=== PATIENT | female | born 1975 | race Caucasian/White ===

== ENCOUNTER → 2017-03-18 | Outpatient (CLI) | payer BC ==
--- NOTE | 2017-03-18 14:58 | RADIOLOGY REPORT (SQ) ---
EXAM DESCRIPTION: CT ABD/PELVIS WITH IV ORAL COMPLETED DATE/TIME: 03/18/2017 2:16 pm REASON FOR STUDY: ABDOMINAL PAIN/HX OF OVARIAN CA R10.9 UNSPECIFIED ABDOMINAL PAIN Z85.43 PERSONAL HISTORY OF MALIGNANT NEOPLASM OF OVARY COMPARISON: None. TECHNIQUE: CT scan of the abdomen and pelvis performed with intravenous and oral contrast using mariah jj scanning technique with dynamic intravenous contrast injection. Images reviewed with lung, soft t issue, and bone windows. Reconstructed coronal and sagittal MPR images reviewed. Delayed images for e valuation of the urinary system also acquired. All images stored on PACS. All CT scanners at this facility use dose modulation, iterative reconstruction, and/or weight based d osing when appropriate to reduce radiation dose to as low as reasonably achievable (ALARA). [facility]: Dose Right [facility]: CareDose [facility]: Dose Right [facility]: Teradose 4D [facility]: Zalando CONTRAST TYPE AND DOSE: contrast/concentration: Isovue 370.00 mg/ml; Total Contrast Delivered: 82.0 ml; Total Saline Delivered: 72.0 ml RENAL FUNCTION: BUN 14 creatinine 0.82. RADIATION DOSE: Up-to-date CT equipment and radiation dose reduction techniques were employed. CTDIv ol: 19.4 - 20.3 mGy. DLP: 2183 mGy-cm.. LIMITATIONS: None. FINDINGS: LOWER CHEST: No significant findings. No nodules or infiltrates. LIVER: Normal size. Diffuse fatty infiltration. No masses. No dilated ducts. SPLEEN: Normal size. No focal lesions. PANCREAS: No masses. No significant calcifications. No adjacent inflammation or peripancreatic fluid collections. Pancreatic duct not dilated. GALLBLADDER: Surgically absent. ADRENAL GLANDS: No significant masses or asymmetry. RIGHT KIDNEY AND URETER: No solid masses. No significant calcification. No hydronephrosis or hydroure ter. LEFT KIDNEY AND URETER: No solid masses. No significant calcification. No hydronephrosis or hydrouret er. AORTA AND VESSELS: No aneurysm. No dissection. Renal arteries, SMA, celiac without stenosis. RETROPERITONEUM: No retroperitoneal adenopathy, hemorrhage or masses. BOWEL AND PERITONEAL CAVITY: No obstruction. No visualized masses. No free fluid. No inflammatory ch anges or thickening of bowel wall. APPENDIX: Surgically absent. PELVIS: No significant masses. Normal bladder. No free fluid. ABDOMINAL WALL: No masses. There are three separate midline anterior abdominal wall hernias. One is located just above the umbilicus, the second located just below the umbilicus, and the third located just inferior to the second one. All three hernias contain loops of small bowel. BONES: No significant or acute findings. OTHER: No other significant finding. IMPRESSION: 1. THREE MIDLINE ANTERIOR ABDOMINAL WALL HERNIAS LOCATED JUST ABOVE AND BELOW THE UMBILICUS DESCRI BED. ALL THREE HERNIAS CONTAIN LOOPS OF SMALL BOWEL WITH NO MECHANICAL OBSTRUCTION. 2. NO OTHER SIGNIFICANT OR ACUTE FINDINGS IN THE ABDOMEN OR PELVIS. INCIDENTAL FATTY INFILTRATION OF THE LIVER. NO EVIDENCE OF PELVIC MASS. TECHNICAL DOCUMENTATION: JOB ID: [id number] Quality ID # [id number]: Final reports with documentation of one or more dose reduction techniques (e.g., Au tomated exposure control, adjustment of the mA and/or kV according to patient size, use of iterative reconstruction technique) 2010 [employer]- All Rights Reserved
== END ==
LOC: RAD 11:42
PROVIDERS: ATTEND Surgery
DX: Z85.43 Personal history of malignant neoplasm of ovary (principal); R10.9 Unspecified abdominal pain
CPT/HCPCS: 74177

== ENCOUNTER 2017-03-19 07:10 | Day surgery (SDC) | payer BC ==
[2017-03-17 10:04] LABS: HEMATOCRIT 39.1 % (36.0-47.0); HEMOGLOBIN 13.7 g/dL (12.0-15.5); MEAN CORPUSCULAR HEMOGLOBIN 29.2 pg (27.0-33.4); MEAN CORPUSCULAR HGB CONC 34.9 g/dL (32.0-36.0); MEAN CORPUSCULAR VOLUME 84 fl (80-97); RED BLOOD COUNT 4.68 10^6/uL (3.72-5.28); RED CELL DISTRIBUTION WIDTH 13.1 % (11.5-14.0); WHITE BLOOD COUNT 6.2 10^3/uL (4.0-10.5)
[2017-03-17 10:29] LABS: ANION GAP 15 (5-19); BLOOD UREA NITROGEN 14 mg/dL (7-20); CALCIUM 9.2 mg/dL (8.4-10.2); CARBON DIOXIDE 25 mmol/L (22-30); CHLORIDE 103 mmol/L (98-107); CREATININE RESULT 0.82 mg/dL (0.52-1.25); GLUCOSE 105 mg/dL (75-110); POTASSIUM 4.4 mmol/L (3.6-5.0); SODIUM 142.9 mmol/L (137-145)
[~2017-03-19 07:10] MED LIST: ACETAMINOPHEN 100 ML IV ONE; ACETAMINOPHEN 325 MG TABLET PO PRN; FENTANYL CITRATE INJ/PF 100 MCG/2 ML AMPUL ONE; HYDROMORPHONE HCL INJ/PF 2 MG/ML AMPULE ONE; LACTATED RINGERS 1000 ML IV PRN; LIDOCAINE 0.5% INJ-PF (5 MG/ML) 50 ML SDV SUBCUT PRN; MIDAZOLAM 2 MG/2 ML INJ ONE; PROPOFOL INJ 200 MG/20 ML VIAL IV ONE
[2017-03-19] MEDS ORDERED: BUPIVACAINE HCL 0.25 % INJ/PF (2.5 MG/1 ML) 30 ML VIAL ONE (07:44)
[2017-03-19] MEDS: CEFAZOLIN 1 GM/D5W RTU 1 GM/50 ML RTUPB IV PRN ×2 (09:05→13:06)
[2017-03-19] MEDS ORDERED: BUPIVACAINE INJ/PF LIPOSOME/PF 266 MG/20 ML SDV ONE (09:12)
[2017-03-19] MEDS ORDERED: DIPHENHYDRAMINE HCL 50 MG/ML VIAL IV PRN (09:39)
[2017-03-19] MEDS ORDERED: MORPHINE SULFATE 10 MG/ML INJ IV PRN ×3 (09:39→11:28)
[2017-03-19] MEDS ORDERED: FENTANYL CITRATE INJ/PF 100 MCG/2 ML AMPUL IV PRN ×3 (09:39)
[2017-03-19] MEDS ORDERED: PROMETHAZINE HCL INJ 25 MG/1 ML VIAL IV PRN (09:39)
[2017-03-19] MEDS ORDERED: KETOROLAC TROMETHAMINE INJ/PF 30 MG/1 ML SDV IV PRN (11:28)
[2017-03-19] MEDS ORDERED: ONDANSETRON HCL INJ/PF 4 MG/2 ML SDV IV PRN (11:28)
[2017-03-19] MEDS ORDERED: OXYCODONE-ACETAMINOPHEN 5-325 MG TABLET PO PRN (11:28)
[2017-03-19] MEDS ORDERED: KETOROLAC TROMETHAMINE 10 MG TABLET PO PRN (11:28)
--- NOTE | 2017-03-19 11:28 | Operative Report ---
Operative Report DATE OF SURGERY: 03/19/17 PREOPERATIVE DIAGNOSIS: 1. Multiple ventral wall hernias with incarceration small bowel. 2. History of ovarian carcinoma POSTOPERATIVE DIAGNOSIS: Same with dense adhesions between small bowel loops and anterior abdominal wall OPERATION: 1. Limited exploratory laparotomy through a midline incision. 2. Lysis of adhesions. 3. Abdominal wall adhesion biopsy. 4. Parietex mesh implantation into peritoneal cavity. 4. Primary closure of abdominal wall fascia with drain placement and subcutaneous tissue SURGEON: MARÍA ELENA GEE HOSE BUILDER: TERESSA SPARROW ANESTHESIA: GA TISSUE REMOVED OR ALTERED: Elements of abdominal wall hernia; abdominal wall adhesion implant COMPLICATIONS: None ESTIMATED BLOOD LOSS: 1 50 cc INTRAOPERATIVE FINDINGS: See below PROCEDURE: Patient was seen in the preop holding area then taken to the main operating room where general anesthesia was induced. Hedrick catheter was inserted, draining clear urine. The abdominal wall is exposed, prepped and draped in a sterile fashion, and the bed extended for maximum exposure of the intra- abdominal wall Surgical plan and surgical timeout was conducted. As discussed preoperatively, we plan to approach the operative repair using a combination of open and laparoscopic techniques. We anesthetized the patient's midline scar above and below the umbilicus with quarter percent Marcaine. Approximately 12 cm incision was made incorporating the previous midline scar at the umbilicus. This incision extended above the umbilicus approximately 5 cm. In combination of blunt, electrocautery dissection, we proceeded to dissect out the [address] scan abdominal wall hernias. These were thin-walled peritoneal sacs largest in the cephalad most position small loss in the mid position by the umbilicus and a third hernia sac inferiorly in the caudad direction of intermediate size. Hernia sacs were removed from surrounding fascia using electrocautery. Of note multiple loops of small bowel relapse into the 2 largest hernia sacs. The majority of these loops of bowel back into the peritoneal cavity however to dominant loops likely of the jejunum required adhesio lysis. These loops were stuck to the cephalad aspect of the anterior abdominal wall fascial defects. Some of the adhesions were very dense and a very small 1-2 mm fragment was sent to pathology for analysis to rule out metastatic disease. Note upon entry into the peritoneal cavity, there was no evidence of carcinomatosis. We could feel into the pelvis and there was no palpable pathology. Because of the somewhat limited closure from this opened, fascial incision which was approximately 12 cm in length we did not have complete exposure to the peritoneal cavity. Nonetheless I did not feel there was evidence of residual ovarian carcinoma. We did hear back from Dr. Palm, pathologist, who stated that the terminal wall implants showed some atypical cells and stains would be pending for final diagnosis. Again there was no karina mass at this point. The adhesiolysis was complete, we inspected the affected bowel and there was no evidence of serosal or luminal defect. At this point we studied the abdominal wall defect. Again all 3 hernias were opened in continuity so the single fascial defect approximately 12-14 cm was appreciated. I now decided to close this defect by placing a peritoneal positioned, [place] of parietex mesh by [employer]. I elected to do this while we had the patient open. We brought onto the field a non- prosthetic, 20 by 15 cm ,and trimmed it so that it was approximately 18 x 12 cm area we placed it into the peritoneal cavity with the appropriate side facing the viscera. We now secured it with approximately 16 loop sutures of #1 PDS suture. These bites were taken away from the fascial edge, and approximately 2 cm from the mesh edge. Once all of the sutures were in position, we ensured that there was no intervening loops of bowel caught between the mesh and the anterior abdominal wall. This was completed under excellent visualization. All PDS sutures were secured with knots. Of note the sponge and needle counts at the conclusion of the mesh placement was correct. We now closed the abdominal wall fascia using 2, #1 PDS continuous suture, coming from the caudad direction and the second coming from the cephalad direction and meeting at the position of the umbilicus. There was some redundancy to this fascia and it was simply ligated as it was encountered. Hemostasis was excellent. A large Brennan drain was placed in the inferior skin flap and the drain placed into the subcutaneous pocket. Secured to skin with 2- 0 Prolene suture. Midline wound closed with 3-0 Vicryl, Dermabond glue applied. Patient tolerated procedure well, extubated and taken to recovery room in stable condition. Hedrick catheter was removed prior to extubation. The physician culture media laboratory assistant, Ms. Tatum, provided assistance during this case by: Assisting with retracting tissue, instillation of local anesthesia and closure of skin incisions.
[2017-03-19] MEDS ORDERED: FENTANYL CITRATE INJ/PF 100 MCG/2 ML AMPUL ONE (11:45)
[2017-03-19] MEDS ORDERED: NEOSTIGMINE METHYLSULFATE 10 MG/10 ML VIAL ONE (11:52)
[2017-03-19] MEDS ORDERED: SUCCINYLCHOLINE CHLORIDE INJ 200 MG/10 ML VIAL ONE (11:52)
[2017-03-19] MEDS ORDERED: ROCURONIUM BROMIDE INJ 50 MG/5 ML VIAL IV ONE (11:52)
[2017-03-19] MEDS ORDERED: DEXAMETHASONE SOD PHOSPHATE INJ 4 MG/1 ML VIAL ONE (11:52)
[2017-03-19] MEDS ORDERED: ONDANSETRON HCL INJ/PF 4 MG/2 ML SDV ONE (11:52)
[2017-03-19] MEDS ORDERED: KETOROLAC TROMETHAMINE 60 MG/2 ML SDV ONE (11:52)
[2017-03-19] MEDS ORDERED: GLYCOPYRROLATE INJ 0.4 MG/2 ML VIAL ONE (11:52)
[2017-03-19] MEDS ORDERED: DIPHENHYDRAMINE HCL 50 MG/ML VIAL ONE (11:57)
[2017-03-19] MEDS: RINGERS SOLUTION,LACTATED 1,000 ML IV PRN (13:39)
[2017-03-19] MEDS: OXYCODONE-ACETAMINOPHEN 5-325 MG TABLET PO PRN (15:39)
[2017-03-19] MEDS: MORPHINE SULFATE 10 MG/ML INJ IV PRN ×2 (16:24→22:51)
[2017-03-19] MEDS: DOCUSATE SODIUM 100 MG CAPSULE PO SCH (17:31)
[2017-03-19] MEDS: ONDANSETRON HCL INJ/PF 4 MG/2 ML SDV IV PRN (22:51)
[2017-03-20] MEDS: RINGERS SOLUTION,LACTATED 1,000 ML IV PRN (01:27)
[2017-03-20] MEDS: ONDANSETRON HCL INJ/PF 4 MG/2 ML SDV IV PRN (02:26)
[2017-03-20] MEDS: MORPHINE SULFATE 10 MG/ML INJ IV PRN (02:27)
[2017-03-20] MEDS: DOCUSATE SODIUM 100 MG CAPSULE PO SCH ×2 (08:28→17:10)
[2017-03-20] MEDS: OXYCODONE-ACETAMINOPHEN 5-325 MG TABLET PO PRN ×2 (08:28→14:46)
[2017-03-20] MEDS ORDERED: ONDANSETRON HCL INJ/PF 4 MG/2 ML SDV IV PRN (09:00)
[2017-03-20] MEDS ORDERED: MAG HYDROX/AL HYDROX/SIMETH SUSP 30 ML UDCUP PO ONE (16:00)
[2017-03-20 16:12] VITALS: BP 136/81
== END 2017-03-20 19:30 | disposition home or self-care (01) ==
LOC: OROUT 07:10 → 5 12:52 → OROUT 03-20 19:30
PROVIDERS: ATTEND Surgery
PROC: 0WUF4JZ Supplement Abdominal Wall with Synthetic Substitute, Percutaneous Endoscopic Approach (ICD-10-PCS; principal; 2017-03-19 09:00)
DX: K43.6 Other and unspecified ventral hernia with obstruction, without gangrene (principal); K21.9 Gastro-esophageal reflux disease without esophagitis; Z85.43 Personal history of malignant neoplasm of ovary; Z79.899 Other long term (current) drug therapy
CPT/HCPCS: 36415; 85027; 80048; 88342 ×2; 88341 ×2; 88302 ×2; 88305 ×2; 94799; 49653; C1781; J2250; J0690; J3490 ×2; J1100; J1200; J1885 ×2; J3010; J2270 ×2; J1170; J0330; J2405 ×2; J7120 ×2; J2704; J0131; C9290; 790